=== PATIENT | female | born 1985 | race Caucasian/White ===

== ENCOUNTER 2017-06-28 08:18 | Emergency (ER) | payer BC ==
[2017-06-28 08:23] VITALS: TEMP 98
[2017-06-28] MEDS ORDERED: KETOROLAC 60 MG/2 ML VIAL IM STA (08:47)
--- NOTE | 2017-06-28 08:50 | ED ---
General Adult HPI - General Chief complaint: Extremity Injury, Lower Stated complaint: Hip Pain Time Seen by Provider: 06/28/17 08:42 Source: patient, RN notes reviewed Mode of arrival: wheelchair Limitations: no limitations - History of Present Illness Initial comments: Patient 32-year-old female presenting to the emergency room today with chief complaint of pain to the right hip. Patient denies any specific injury or trauma. She does admit that it's worse and she lays on the left side. She states worse with adduction of the right hip. Does not have pain with abduction. Patient states she is able to flex the right hip with little to no pain. Patient states unable to sleep last night because could not find comfort position. Patient's discharge Tylenol no relief. Denies any other complaints. Denies any bowel or bladder incontinence retention, saddle anesthesia, lumbar radiculopathy. Patient denies any recent fever, chills, shortness of breath, chest pain, back pain, abdominal pain, nausea or vomiting, numbness or tingling , headaches or visual changes, or any other complaints. - Related Data Home Medications Medication Instructions Recorded Confirmed Levonorgestrel-Ethin Estradiol 1 tab PO HS 06/28/17 06/28/17 [Lutera-28 Tablet] Previous Rx's Medication Instructions Recorded Ibuprofen [Motrin] 600 mg PO Q6HR PRN #40 day 06/28/17 Allergies Allergy/AdvReac Type Severity Reaction Status Date / Time No Known Allergies Allergy Verified 06/28/17 08:56 Review of Systems ROS Statement: Those systems with pertinent positive or pertinent negative responses have been documented in the HPI. ROS Other: All systems not noted in ROS Statement are negative. Past Medical History Past Medical History: No Reported History History of Any Multi-Drug Resistant Organisms: None Reported Past Surgical History: Section Past Psychological History: No Psychological Hx Reported Smoking Status: Current every day smoker Past Alcohol Use History: None Reported Past Drug Use History: None Reported General Exam - General Exam Comments Initial Comments: General: The patient is awake and alert, in no distress, and does not appear acutely ill. Neck: The neck is supple, there is no tenderness or JVD. Musculoskeletal: Normal appearance of the right hip. Patient does have pain with adduction. No pain with log roll. No pain with abduction. No pain with flexion. No pain on palpation. No redness no erythema. Pulses 2+. Strength 5 /5. Sensations intact. No tenderness to the lumbar spine. Neurological: A&O x 3. CN II-XII intact, There are no obvious motor or sensory deficits. Coordination appears grossly intact. Speech is normal. Skin: Skin is warm and dry and no rashes or lesions are noted. Psychiatric: Normal mood and affect. Limitations: no limitations Course Vital Signs 06/28/17 08:21 Temperature 98.0 F Pulse Rate 85 Respiratory 18 Rate Blood Pressure 137/79 O2 Sat by Pulse 96 Oximetry Medical Decision Making - Medical Decision Making Patient's x-rays reviewed are negative. Does feel better after Toradol here in the emergency room. Patient will continue anti-inflammatories advised follow- up orthopedics. Advised return for any other concerns. Disposition Clinical Impression: Hip pain Disposition: HOME SELF-CARE Condition: Good Instructions: Hip Pain (ED) Additional Instructions: Please use medication as discussed. Please follow-up with orthopedic/family doctor in the next 2-5 days of symptoms have not improved. Please return to emergency room if the symptoms increase or worsen or for any other concerns. Prescriptions: Ibuprofen [Motrin] 600 mg PO Q6HR PRN #40 day PRN Reason: Pain Is patient prescribed a controlled substance at d/c from ED?: No Referrals: Jagdish Sena DO [Primary Care Provider] - 1-2 days Jagdish Rodriguez DO [Doctor of Osteopathic Medicine] - 1-2 days Time of Disposition: 10:11
--- NOTE | 2017-06-28 10:04 | XR ---
EXAMINATION TYPE: AP pelvis and 2 views right hip DATE OF EXAM: 06/28/2017 COMPARISON: NONE HISTORY: 32-year-old female with right hip pain radiating down the legs since last night FINDINGS: SI joints appear symmetric and intact as does the pubic symphysis. The hips are also symmetrical with out acute fracture, subluxation, or dislocation seen. No periostitis or osteolysis. IMPRESSION: Pelvis and right hip without acute osseous abnormality seen.
[2017-06-28 10:30] VITALS: BP 114/56; PULSE 57; RESP 17
== END 2017-06-28 10:29 | disposition home or self-care (01) ==
LOC: EC 08:18
DX: M25.551 Pain in right hip (principal); F17.200 Nicotine dependence, unspecified, uncomplicated; Z79.3 Long term (current) use of hormonal contraceptives
CPT/HCPCS: 73502; 96372; 99284; J1885

== ENCOUNTER 2018-07-19 21:46 | Emergency (ER) | payer BC, OTHER ==
[2018-07-19 22:15] VITALS: BP 125/95; PULSE 91; RESP 18; TEMP 98.7
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
== END 2018-07-19 22:45 | disposition home or self-care (01) ==
LOC: EC 21:46
DX: Z77.21 Contact with and (suspected) exposure to potentially hazardous body fluids (principal); F17.200 Nicotine dependence, unspecified, uncomplicated; Z79.3 Long term (current) use of hormonal contraceptives
CPT/HCPCS: 99282

== ENCOUNTER 2021-04-29 16:10 | Emergency (ER) | payer BC, OTHER ==
[2021-04-29 16:19] VITALS: BP 129/86; PULSE 83; RESP 16; TEMP 98.5
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
== END 2021-04-29 17:12 | disposition home or self-care (01) ==
LOC: EC 16:10
DX: Z04.1 Encounter for examination and observation following transport accident (principal)
CPT/HCPCS: 99284